=== PATIENT | female | born 1970 | race Hispanic/Latino ===

== ENCOUNTER 2019-01-08 06:20 | Day surgery (SDC) | payer BC ==
[2019-01-02 12:17] LABS: Absolute Lymphocytes (CBC) 2.2 K/uL (0.7-4.9); Basophils % 0.6 % (0-1.3); Eosinophils % 2.6 % (0-4.4); Hematocrit 37.5 % (36.0-45.0); Lymphocytes % 33.5 % (15.3-44.8); MPV 7.4 fL (7.6-11.3); RBC Red Blood Cell Count 4.03 M/uL (3.86-4.86)
[2019-01-02 12:41] LABS: Urine Appearance CLEAR; Urine Bilirubin NEGATIVE (NEG); Urine Blood NEGATIVE (NEG); Urine Color YELLOW; Urine Glucose NEGATIVE (NEG); Urine Protein NEGATIVE (NEG); Urine Urobilinogen 0.2 mg/dL (0.2-1.0)
[2019-01-02 13:07] LABS: Urine Microscopic Reflex NO UMIC
[2019-01-08] MEDS ORDERED: Ringers Lactate 1,000 ML IV ONE (06:51)
[2019-01-08] MEDS ORDERED: SCOPOLAMINE HYDROBROMIDE PATCH TD ONE (06:51)
[2019-01-08] MEDS ORDERED: PROPOFOL 200 MG/20 ML VIAL IV ONE (07:21)
[2019-01-08] MEDS ORDERED: GLYCOPYRROLATE 0.2 MG/ML SYR ONE ×2 (07:22→07:23)
[2019-01-08] MEDS ORDERED: FENTANYL CITR 250 MCG/5 ML ONE (07:23)
[2019-01-08] MEDS ORDERED: LIDOCAINE 2% MPF 5 ML VIAL ONE (07:23)
[2019-01-08] MEDS ORDERED: ROCURONIUM 50 MG/5 ML VIAL IV ONE ×2 (07:24→08:41)
[2019-01-08] MEDS ORDERED: ONDANSETRON 4 MG/2 ML VIAL ONE (07:24)
[2019-01-08] MEDS ORDERED: MIDAZOLAM HCL 2 MG/2 ML INJ ONE (07:25)
[2019-01-08] MEDS ORDERED: EPHEDRINE SULF 50 MG/ML VIAL ONE (08:41)
[2019-01-08] MEDS: Ringers Lactate 1,000 ML IV ONE ×2 (09:04→09:15)
[2019-01-08] MEDS ORDERED: FENTANYL CITR 100 MCG/2 ML ONE (09:15)
[2019-01-08] MEDS ORDERED: NEOSTIGMINE 1 MG/ML -10 ML VIAL ONE (09:24)
[2019-01-08] MEDS ORDERED: KETOROLAC 30 MG/ML INJ ONE (09:25)
[2019-01-08 10:05] VITALS: O2SAT 96
[2019-01-08] MEDS ORDERED: HYDROCODONE/APAP 5/325 MG TAB PO ONE (10:20)
[2019-01-08 10:30] VITALS: TEMP 98.3
[2019-01-08] MEDS ORDERED: HYDROCODONE/APAP 5/325 MG TAB ONE (10:34)
[2019-01-08 11:05] VITALS: BP 125/67
--- NOTE | 2019-01-08 20:33 | OP ---
Date of Procedure: 01/08/2019 Surgeon: Doris Marquez MD Assistant Chief Of Police: Sheri Saini. Preoperative Diagnoses: Pelvic pain; menopausal symptoms; family history of breast and ovarian cance rs; stomach, colon, and uterine cancer . Personal history of precancerous colon polyp. Postoperative Diagnoses: Pelvic pain; menopausal symptoms; family history of breast and ovarian canc ers; stomach, colon, and uterine cancer . Personal history of precancerous colon polyp. Procedures Performed: Diagnostic laparoscopy, bilateral salpingo-oophorectomy, pelvic washings. Anesthesia: General endotracheal. Estimated Blood Loss: Minimal. Specimens: Both tubes and ovaries and pelvic washings. Complications: No complications. Drains: No drains. Condition: Stable. Findings: Both ovaries, especially the right ovary densely adhered to the right pararectal space. T he peritoneum on top of the right pararectal space. The tubes on both sides adherent to the lateral luo. The ovary on the left side mostly unremarkable with . No evidence of any endometri osis. Posterior cul-de-sac with a small Mic Master sinus in the right pararectal space. Vaginal c uff completely unremarkable. Appendix normal. Upper abdominal surface, peritoneum normal without an y remarkable findings. Indications For Procedure: The patient is a 48-year-old presented with pelvic pain. She is status p ost hysterectomy. She has had this pain that impairs her quality of life. She was given depot medro xyprogesterone to suppress her ovulation as a treatment for her pain. This was held; however, the pa tient started to have increasing breast pain. She has significant family history of maternal cousin at age 38 with breast cancer. Then, she has a paternal aunt with ovarian and stomach cancer. Anothe r paternal aunt with colon cancer. Father with stomach cancer and then she has a personal history of precancerous colon polyps at age 41. Maternal grandfather with prostate cancer. So she had BRCA te sting done, which was negative. The worry was that if we left her on the hormones that increases her risk of breast cancer despite the negative BRCA given the patient's ethnicity and especially with he r having increased breast tenderness with depot medroxyprogesterone. So we discussed about the optio ns of continuing hormonal treatment versus surgical treatment and she preferred to have surgical domenic tment since the side effects of the hormonal treatment were not acceptable to her. We discussed abou t the surgical menopause, possible giving her small low-dose hormone therapy for 1-3 years to transit ion her with careful observation and followup including screening for breast. She was consented and brought to the OR for pelvic washings and BSO. Description Of Procedure: After informed consent was verified, she was taken back to OR, placed in s upine fashion on the operating table. After general anesthesia was given, she was placed in dorsal l ithotomy position. Pelvic exam was performed. No adnexal masses were palpable. There was some thic kened tissue at the vaginal cuff on both ends, especially on the right more than the left. Abdomen, vulva, vagina, and perineum were prepped and draped in a sterile fashion. Morrow was placed to drain the bladder and attached to cysto tubing to an LR bag, emptied 300 for retrograde filling. A sponge on a stick was placed in the vagina for retraction. A 1 cm infraumbilical incision was made with a scalpel using the open laparoscopy technique. Fascia was incised and tagged with 0 Vicryl sutures. Peritoneum was entered bluntly. S retractors were nimo christopher, Tootie introduced, site of entry was checked and was unremarkable. Gas and abdomen was insuffla stephanie appropriately. A 5-mm suprapubic and left lower quadrant ports were placed under direct vision. After filling the bladder and checking into the bladder adhesions, the tube seemed to be closer to t he suprapubic port. Once the trocar was safely placed, pelvic washings were performed. The small connie wel had to be tucked into the upper abdomen by steep Trendelenburg by folding it on the mesentery and retracting it superiorly. The sigmoid colon was held with diverticula with its epiploicae. No dive rticula were seen. Monocryl 3-0 with SH needle was taken and the epiploicae tagged and pulled up thr ough the left upper quadrant using the Maldonado-Jessica needle for retraction. Once this was done, th ere was excellent exposure of the entire pelvic cavity. The ureter on the left side was well visuali zed and the entire course was inferior and medial to the operating site on the left side, first on th e right side. I could see the ureter posteriorly adhesions. The adhesion of the lower po le of the ovary was to the right pararectal space. Once all these were well visualized, the bladder relation to the tubal scarring all this was well visualized, then went ahead and took down the tubal adhesions from the bladder on the left side. Then, the tube was removed in its entirety with a 5-mm LigaSure curved tip. Then the left ovary was taken down to the infundibulopelvic ligament and the ov thais was from the left lateral wall with the help of the LigaSure without any harm to ureter . The specimens were left in the posterior cul-de-sac on the left side of the colon. Then, on the r ight side, the tube on the top was taken down with the help of sharp dissection opening and releasing it from the scar at the vaginal cuff. Once this was done, the LigaSure was used to remove the tube placed in the right pararectal space. Then, the adhesions of the ovary were attempted to be taken do wn as far as possible getting into the plane where the adhesions of the ovary were. Once this was la id out, then the LigaSure was used to take down the infundibulopelvic ligament and the dissection was carried while the ureter was inferior and medial to release the ovary with the LigaSure. Once this was done, then sharp dissection was performed at the area of the distal lower pole of adhesions with scissors and once this was released, then the LigaSure was used to take it down. All the specimens w ere retrieved through an EndoCatch bag placed to the umbilical port after switching to a 5 camera thr ough the left. All the specimens were collected and placed into the ovary in a sequential fashion so that could be identified. Bag closed, camera changed, thorough irrigation and suction were performe d at the area of the dissection. All the pedicles were completely hemostatic. All the trocars were removed under direct vision. After releasing the epiploicae, there was no evidence of any trauma to the colon, small bowel, the trocar sites. The gas was desufflated, Tootie was removed. The fascia a t the umbilicus was closed with 0 Vicryl in [id number] fashion, simple 4-0 Vicryl sutures interr upted at all skin incisions. The Morrow and retractor with sponge on a stick were all removed. Instr ument, needle, and sponge counts were done and were correct at the end of the case x2. The patient w as recovered from anesthesia and taken to PACU in stable condition. Urine output 100. EBL minimal. The patient's condition is stable. She will follow up with me in 1 week. She can get low- dose hormone therapy if her symptoms are severe and if not tolerated without any side effects, then p amy to use nonhormonal therapies. XI/CHANTAL Voice ID: [id number] Report ID: [id number]
== END 2019-01-08 11:15 | disposition home health service (06) ==
LOC: OR 06:20
PROVIDERS: ATTEND Obstetrics & Gynecology
PROC: 0UT74ZZ Resection of Bilateral Fallopian Tubes, Percutaneous Endoscopic Approach (ICD-10-PCS; 2019-01-08)
PROC: 0UT24ZZ Resection of Bilateral Ovaries, Percutaneous Endoscopic Approach (ICD-10-PCS; principal; 2019-01-08 07:30)
DX: N83.202 Unspecified ovarian cyst, left side (principal); N83.201 Unspecified ovarian cyst, right side; N73.6 Female pelvic peritoneal adhesions (postinfective); N95.1 Menopausal and female climacteric states; Z80.3 Family history of malignant neoplasm of breast; Z80.41 Family history of malignant neoplasm of ovary; Z80.0 Family history of malignant neoplasm of digestive organs; Z80.49 Family history of malignant neoplasm of other genital organs; Z85.038 Personal history of other malignant neoplasm of large intestine; E78.5 Hyperlipidemia, unspecified; F41.9 Anxiety disorder, unspecified; F33.1 Major depressive disorder, recurrent, moderate; K21.9 Gastro-esophageal reflux disease without esophagitis; Z79.899 Other long term (current) drug therapy
CPT/HCPCS: 36415; 81003; 85025; 86850; 86900; 86901; 88108; 88305; J2250; J2405; J2704; J2710; J3010

== ENCOUNTER 2020-11-27 22:23 | Emergency (ER) | payer BC ==
--- OUTSIDE RECORDS SUMMARY | 2020-11-27 22:25 | XMS REPORT | Continuity of Care Document ---
:1970 Author Organization [facility] t Address [address] [place] [address] [address] [place] [address] Care Team Providers Name Role Phone Lab, Reese Pob I Attending Clinician Unavailable Problems This patient has no known problems. Allergies, Adverse Reactions, Alerts This patient has no known allergies or adverse reactions. Medications This patient has no known medications. Procedures This patient has no known procedures. Encounters Start End Encounter Admission Attending Care Care Encounter Source Date/Time Date/Time Type Type Clinicians Facility Department ID 2020-02-26 2020-02-26 Laboratory Lab, [facility] [id number] 15:55:23 16:15:23 Only Fam Pob I Event [facility] [id number] [place] [id number] [place] [id number] [address] One Results This patient has no known results.
[2020-11-27] MEDS ORDERED: LIDOCAINE JELLY 2%- 5 ML TUBE ONE (22:54)
--- NOTE | 2020-11-27 23:27 | ER ---
Nurse's Notes [facility] Name: Megan Nelson Age: 50 yrs Sex: Female : 1970 Arrival Date: 11/27/2020 Time: 22:27 Bed 20 Private MD: Diagnosis: Fall on same level from slipping, tripping and stumbling;Laceration without foreign body of scalp;Superficial injury of head Presentation: 11/27 22:27 Chief complaint: Patient states: Pt BIB EMS from home for c/o head injury s/p ad5 mechanical fall at home in garage. Pt reports missed step and fell onto L side. 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 Denies blood thinner use. Care prior to arrival: None. Mechanism of Injury: Fall down 1 steps. Trauma event details: Injury occurred: at home. 22:27 Acuity: CHERISE 3 ad5 22:27 Method Of Arrival: EMS ad5 23:31 Coronavirus screen: Client denies travel out of the [place] in the last 14 days. At this ad5 time, the client does not indicate any symptoms associated with coronavirus-19. Ebola Screen: Patient negative for fever greater than or equal to 101.5 degrees Fahrenheit, and additional compatible Ebola Virus Disease symptoms Patient denies exposure to infectious person. Patient denies travel to an Ebola-affected area in the 21 days before illness onset. No symptoms or risks identified at this time. Initial Sepsis Screen: Does the patient meet any 2 criteria? No. Patient's initial sepsis screen is negative. Does the patient have a suspected source of infection? No. Patient's initial sepsis screen is negative. Risk Assessment: Do you want to hurt yourself or someone else? Patient reports no desire to harm self or others. Onset of symptoms was November 27, 2020. Historical: - Allergies: 22:33 NKDA; ad5 - Immunization history: Last tetanus immunization: - up to date. - Social history:: Smoking status: unknown. Screenin:46 Abuse screen: Denies threats or abuse. Denies injuries from another. Tuberculosis ad5 screening: No symptoms or risk factors identified. 11/28 00:02 Fall Risk Fall in past 12 months (25 points). Secondary diagnosis (15 points) No IV (0 ad5 pts). Ambulatory Aid- None/Bed Rest/Nurse Assist (0 pts). Gait- Normal/Bed Rest/Wheelchair (0 pts) Mental Status- Oriented to own ability (0 pts). Total Esquivel Fall Scale indicates Low Risk Score (25-44 pts). Fall prevention measures have been instituted. Side Rails Up X 2 Frequent Obs/Assesments occuring Family Present and informed to notify staff if they need to leave bedside. 00:02 Nutritional screening: No deficits noted. ad5 Primary Survey: 11/27 22:41 NO uncontrolled hemorrhage observed. A: The patient is alert. Airway: patent, No ad5 supplemental oxygen in use on arrival. Breathing/Chest: Respiratory pattern: regular, Respiratory effort: spontaneous, unlabored. Circulation: Cardiac rhythm: sinus rhythm Heart tones present. Pulses: palpable . Skin color: pink, Skin temperature: warm, dry. Disability Alert. Exposure/Environment: All clothing and personal items were removed. Forensic evidence collection is not deemed to be indicated at this time. Items placed in patient belonging bag. There is no evidence of uncontrolled external bleeding. Obvious injury(ies) are noted at this time: Abrasion L knee; approximately 2 cm laceration above L ear A warming method has been applied: A warm blanket has been provided to the patient. Reassessment. 11/28 00:01 Reassessment Airway Airway Patent Breathing/Chest Respiratory pattern Regular ad5 Respiratory effort Spontaneous Unlabored Circulation Heart rhythm Sinus rhythm Heart tones Present Pulses Palpable Color [place] Temperature Warm Dry Disability Alert. Secondary Survey: 11/27 22:44 HEENT: Head Other approximately 2 cm laceration above L ear, bleeding controlled, edges ad5 well approximated. Gastrointestinal: No deficits noted. Gastrointestinal: No deficits noted. Abdomen is soft, flat, Bowel sounds present in all quadrants. Palpation No deficit noted. : No deficits noted. No signs and/or symptoms were reported regarding the genitourinary system. Musculoskeletal: Circulation, motion, and sensation intact. Capillary refill < 3 seconds, Range of motion: intact in all extremities. Abrasion L knee, no obvious deformity noted, distal SMCs intact; no active bleeding. Assessment: 22:30 General: Appears in no apparent distress. comfortable, Behavior is calm, cooperative, ad5 appropriate for age. Pain: Complains of pain in left temporal area. Neuro: No deficits noted. Level of Consciousness is awake, alert, obeys commands, Oriented to person, place, time, situation, Appropriate for age Supervisor Sewing Department are equal bilaterally Moves all extremities. Gait is steady, Speech is normal, Facial symmetry appears normal, Pupils are PERRLA, Intact. EENT: No deficits noted. Cardiovascular: No deficits noted. Denies chest pain, lightheadedness, shortness of breath, Heart tones present Capillary refill < 3 seconds JVD is absent Patient's skin is warm and dry. Pulses are all present. Respiratory: No deficits noted. Airway is patent Trachea midline Respiratory effort is even, unlabored, Respiratory pattern is regular, symmetrical. GI: No deficits noted. : No deficits noted. Derm: Skin is pink, warm \\T\\ dry. Wound noted left temporal area Other: Pt with abrasion to L knee and small laceration to L advent area. Musculoskeletal: No deficits noted. Circulation, motion, and sensation intact. Capillary refill < 3 seconds, Range of motion: intact in all extremities. 23:33 Reassessment: Patient appears in no apparent distress at this time. Patient and/or ad5 family updated on plan of care and expected duration. Pain level reassessed. Patient is alert, oriented x 3, equal unlabored respirations, skin warm/dry/pink. Patient states feeling better. Vital Signs: 22:45 BP 135 / 83; Pulse 71; Resp 16 S; Temp 97.8; Pulse Ox 100% on R/A; Weight 72.57 kg; ad5 Height 5 ft. 4 in. (162.56 cm); Pain 4/10; 23:32 BP 107 / 76; Pulse 64; Resp 16 S; Pulse Ox 99% on R/A; Pain 2/10; ad5 22:45 Body Mass Index 27.46 (72.57 kg, 162.56 cm) ad5 [place] Coma Score: 22:45 Eye Response: spontaneous(4). Verbal Response: oriented(5). Motor Response: obeys ad5 commands(6). Total: 15. 23:14 Eye Response: spontaneous(4). Verbal Response: oriented(5). Motor Response: obeys kb commands(6). Total: 15. 23:17 Eye Response: spontaneous(4). Verbal Response: oriented(5). Motor Response: obeys kb commands(6). Total: 15. Trauma Score (Adult): 22:45 Eye Response: spontaneous(1); Verbal Response: oriented(1); Motor Response: obeys ad5 commands(2); Systolic BP: > 89 mm Hg(4); Respiratory Rate: 10 to 29 per min(4); Judah Score: 15; Trauma Score: 12 ED Course: : Patient arrived in ED. ad5 22:27 Gallo Coleman is Primary Nurse. ad5 22:27 Deborah Black [facility]-C [facility]. kb 22:27 Darnell Chavez MD is Attending Physician. kb 22:30 Triage completed. ad5 22:41 CT Head C Spine Sent. ad5 22:46 Patient has correct armband on for positive identification. Bed in low position. Call ad5 light in reach. Side rails up X2. Pulse ox on. NIBP on. 22:49 CT Head C Spine In Process Unspecified. EDMS 23:32 No provider procedures requiring assistance completed. Patient did not have IV access ad5 during this emergency room visit. Irrigation of laceration on left temporal area irrigated with normal saline Hibiclens solution Patient tolerated well. 11/28 00:02 Patient maintains SpO2 saturation greater than 95% on room air. ad5 00:03 Thermoregulation: warm blanket given to patient. ad5 00:03 Arm band placed on. ad5 Administered Medications: 11/27 22:40 Drug: Lidocaine Gel 2 % 1 application Route: Mucous Membrane; ad5 22:41 Not Given (pt UTD): Tetanus-Diphtheria Toxoid Adult 0.5 ml IM once ad5 Outcome: 23:26 Discharge ordered by . kb 11/28 00:01 Discharged to home ambulatory, with significant other. ad5 Condition: stable Discharge instructions given to patient, significant other, Instructed on discharge instructions, follow up and referral plans. Demonstrated understanding of instructions, follow-up care. 00:02 Patient's length of stay in the Emergency Department was greater than [address] scan/wound carePatient's length of stay extended due to 00:03 Patient left the ED. ad5 Signatures: Dispatcher [employer] EDMS Deborah Black FNP-C MANAGER FIRE-Gallo English ad5
--- NOTE | 2020-11-27 23:27 | EDPHYS ---
Physician Documentation [facility] Name: Megan Nelson Age: 50 yrs Sex: Female : 1970 Arrival Date: 11/27/2020 Time: 22:27 Bed 20 Private MD: ED Physician Darnell Chavez HPI: 11/27 23:17 This 50 yrs old Female presents to ER via EMS with complaints of Head Injury kb Without LOC-Adult. 23:17 The patient or guardian reports a laceration, 2 cm(s), clean, pain. The complaints kb affect the left temporal area. Context of injury: The problem was sustained at home, resulted from a fall, while walking, slipped on rug. Onset: The symptoms/episode began/occurred just prior to arrival. Associated signs and symptoms: Loss of consciousness: This patient experience a loss of consciousness, that was brief, Pertinent positives: loss of conciousness, patient admits to or smells of alcohol consumption. Severity of symptoms: At their worst the symptoms were mild, moderate, in the emergency department the symptoms are unchanged. The patient has not experienced similar symptoms in the past. The patient has not recently seen a physician. Pt reports she was walking into the house from the garage and slipped on the rug. reports hitting her head. States her son said she did have a brief LOC. Pt denies any discomfort at this time. Historical: - Allergies: 22:33 NKDA; ad5 - Immunization history: Last tetanus immunization: - up to date. - Social history:: Smoking status: unknown. ROS: 23:15 Constitutional: Negative for fever, chills, and weight loss. kb 23:15 Skin: Positive for laceration(s), of the left temporal area. 23:15 Neuro: Positive for loss of consciousness. 23:15 All other systems are negative. kb Exam: 23:15 Constitutional: This is a well developed, well nourished patient who is awake, alert, kb and in no acute distress. Eyes: Pupils equal round and reactive to light, extra-ocular motions intact. Lids and lashes normal. Conjunctiva and sclera are non-icteric and not injected. Cornea within normal limits. Periorbital areas with no swelling, redness, or edema. ENT: Moist Mucous membranes Neck: Trachea midline, no thyromegaly or masses palpated, and no cervical lymphadenopathy. Supple, full range of motion without nuchal rigidity, or vertebral point tenderness. No Meningismus. Respiratory: Respirations even and unlabored. No increased work of breathing, no retractions or nasal flaring. MS/ Extremity: Pulses equal, no cyanosis. Neurovascular intact. Full, normal range of motion. Neuro: Awake and alert, GCS 15, oriented to person, place, time, and situation. Moves all extremities. Normal gait. Psych: Awake, alert, with orientation to person, place and time. Behavior, mood, and affect are within normal limits. 23:15 Skin: injury, laceration(s), the wound is approximately 2 cm(s), of the left temporal area, that can be described as clean, no foreign body, linear, without bleeding. Vital Signs: 22:45 BP 135 / 83; Pulse 71; Resp 16 S; Temp 97.8; Pulse Ox 100% on R/A; Weight 72.57 kg; ad5 Height 5 ft. 4 in. (162.56 cm); Pain 4/10; 23:32 BP 107 / 76; Pulse 64; Resp 16 S; Pulse Ox 99% on R/A; Pain 2/10; ad5 22:45 Body Mass Index 27.46 (72.57 kg, 162.56 cm) ad5 [place] Coma Score: 22:45 Eye Response: spontaneous(4). Verbal Response: oriented(5). Motor Response: obeys ad5 commands(6). Total: 15. 23:14 Eye Response: spontaneous(4). Verbal Response: oriented(5). Motor Response: obeys kb commands(6). Total: 15. 23:17 Eye Response: spontaneous(4). Verbal Response: oriented(5). Motor Response: obeys kb commands(6). Total: 15. Trauma Score (Adult): 22:45 Eye Response: spontaneous(1); Verbal Response: oriented(1); Motor Response: obeys ad5 commands(2); Systolic BP: > 89 mm Hg(4); Respiratory Rate: 10 to 29 per min(4); [place] Score: 15; Trauma Score: 12 Laceration: 23:25 Wound Repair of 2cm ( 0.8in ) subcutaneous laceration to left temporal area. Linear kb shaped.. Distal neuro/vascular/tendon intact. Anesthesia: Topical anesthetic administered with 1% lidocaine. Wound prep: Moderate cleansing with hibiclenz, Wound irrigation. Skin closed with 3 1-0 Brenna using staple gun. Patient tolerated well. MDM: 22:28 Patient medically screened. kb 23:14 Data reviewed: vital signs, nurses notes. Data interpreted: Pulse oximetry: on room air kb is 100 %. Interpretation: normal. 23:25 Counseling: I had a detailed discussion with the patient and/or guardian regarding: the kb historical points, exam findings, and any diagnostic results supporting the discharge/admit diagnosis, lab results, radiology results, the need for outpatient follow up, a family practitioner, to return to the emergency department if symptoms worsen or persist or if there are any questions or concerns that arise at home. 11/27 22:28 Order name: CT Head C Spine kb 11/27 22:35 Order name: Wound Care; Complete Time: 23:58 kb Administered Medications: 22:40 Drug: Lidocaine Gel 2 % 1 application Route: Mucous Membrane; ad5 22:41 Not Given (pt UTD): Tetanus-Diphtheria Toxoid Adult 0.5 ml IM once ad5 Disposition: 11/28 04:24 Co-signature as Attending Physician, Darnell Chavez MD. Chart complete. [facility] Disposition: 11/27/20 23:26 Discharged to Home. Impression: Fall on same level from slipping, tripping and stumbling, Laceration without foreign body of scalp, Superficial injury of head. - Condition is Stable. - Discharge Instructions: Laceration Care, Adult, [id number], Head Injury, Adult, [id number]. - Medication Reconciliation Form, Thank You Letter, Antibiotic Education, Prescription Opioid Use form. - Follow up: Emergency Department; When: As needed; Reason: Worsening of condition. Follow up: Private Physician; When: 2 - 3 days; Reason: Recheck today's complaints, Continuance of care, Re-evaluation by your physician. Signatures: Dispatcher [employer] Deborah Soliz, MERCHANDISE SUPERVISOR-C SENDY-Darnell Bautista MD MD [facility] Jared Gallo ad5 Corrections: (The following items were deleted from the chart) 11/27 23:26 23:17 Pt reports she was walking into the house from the garage and slipped on the rug. kb reports hitting her head. States her son said she did have a brief LOC. Pt denies any discomfort at this time. zaire 11/28 00:03 11/27 23:26 11/27/2020 23:26 Discharged to Home. Impression: Fall on same level from ad5 slipping, tripping and stumbling; Laceration without foreign body of scalp; Superficial injury of head. Condition is Stable. Forms are Medication Reconciliation Form, Thank You Letter, Antibiotic Education, Prescription Opioid Use. Follow up: Emergency Department; When: As needed; Reason: Worsening of condition. Follow up: Private Physician; When: 2 - 3 days; Reason: Recheck today's complaints, Continuance of care, Re-evaluation by your physician. kb
[2020-11-28 00:39] VITALS: TEMP 97.8
[2020-11-28 00:45] VITALS: BP 107/76; O2SAT 99
--- NOTE | 2020-11-28 15:53 | RAD REPORT ---
EXAM DESCRIPTION: CT - Head C Spine Mpr Wo Con - 11/28/2020 6:19 am COMPARISON: None. CLINICAL HISTORY: [facility] MAIN PAIN TECHNIQUE: Axial images were obtained from skull base to vertex without intravenous contrast. Imag es viewed on bone and brain windows. Multiplanar reformats were performed. Automated exposure contr ol was utilized on this examination as a dose lowering technique. FINDINGS: Brain parenchyma, ventricles, dura, meninges, and extra-axial spaces: Ventricles and sulci are normal. No abnormal attenuation of brain parenchyma is present. No acute intracranial hemor rhage or abnormal extra-axial fluid collections are present. Vascular structures: No hyperdense arteries or veins. Calvarium, mastoid air cells, paranasal sinuses and orbits: The calvarium is normal. The mastoid air cells are clear. Visualized paranasal sinuses are unremarkable. Orbital structures are unremarkable. IMPRESSION: No acute intracranial abnormality. EXAM DESCRIPTION: CT Cervical Spine COMPARISON: None. CLINICAL HISTORY: [facility] MAIN PAIN TECHNIQUE: Axial CT images were obtained through the entire cervical spine without contrast. Sagit facundo and coronal reconstructions are provided. Automated exposure control was utilized on this examina tion as a dose lowering technique. FINDINGS: Vertebrae: Vertebral statures are normal. Mild reversal of normal cervical lordosis. No acute fracture, dislocation or destructive osseous process is present. Spinal canal, foramina, and facet joints: No significant spinal canal or foraminal stenoses. No significant facet arthropathy. Paraspinous soft-tissues: Normal. Thyroid: Normal. Other Findings: None. IMPRESSION: Mild reversal of normal cervical lordosis may be positional or due to muscular strain or spasm. No acute fracture or subluxation. Electronically signed by: Adrián Bartlett MD 11/27/2020 11:19 PM CDT Due to temporary technical issues with the PACS/Fluency reporting system, reports are being signed by the in house radiologists without review as a courtesy to insure prompt reporting. The interpreting radiologist is fully responsible for the content of the report.
== END 2020-11-28 00:03 | disposition home or self-care (01) ==
LOC: ER 22:23
PROC: 0JQ00ZZ Repair Scalp Subcutaneous Tissue and Fascia, Open Approach (ICD-10-PCS; principal; 2020-11-28)
DX: S01.01XA Laceration without foreign body of scalp, initial encounter (principal); W01.198A Fall on same level from slipping, tripping and stumbling with subsequent striking against other object, initial encounter; Y93.01 Activity, walking, marching and hiking; Y92.008 Other place in unspecified non-institutional (private) residence as the place of occurrence of the external cause
CPT/HCPCS: 70450; 72125; 99284